=== PATIENT | female | born 1980 | race American Indian/Alaskan Native ===

== ENCOUNTER 2016-10-01 00:20 | Emergency (ER) | payer MEDICAID ==
[2016-10-01] MEDS ORDERED: DELTASONE PO ONE (04:23)
[2016-10-01] MEDS ORDERED: MAGIC MOUTHWASH PO ONE (04:23)
--- NOTE | 2016-10-01 04:39 | Emergency Department Report ---
HPI - General Chief Complaint: Sore Throat Time Seen by Provider: 10/01/16 04:15 - HPI HPI: Patient is a 36-year-old male who presents to ED with her significant other his mother complaining of throat pain 3 days. Patient describes pain as throbbing in nature, 8 out of 10 intensity, nonradiating, localized to his throat. Admits pain with swallowing and eating. . Patient denies fever, coughing, runny nose, nasal congestion. Patient denies nausea/vomiting/abdominal pain/shortness of breath/chest pain/ headache. . ED Past Medical Hx - Past Medical History Previous Medical History?: Yes Hx Asthma: Yes - Surgical History Past Surgical History?: No - Social History Smoking Status: Never Smoker Substance Use Type: None - Medications Home Medications: Home Medications Medication Instructions Recorded Confirmed Last Taken Type Ibuprofen [Motrin] 800 mg PO Q8HR PRN #30 tablet 10/01/16 Unknown Rx ED Review of Systems ROS: Stated complaint: SORE THROAT/PAIN TO SWALLOW Other details as noted in HPI Constitutional: denies: chills, fever Eyes: denies: eye pain, eye discharge, vision change ENT: throat pain. denies: ear pain Respiratory: denies: cough, shortness of breath, wheezing Cardiovascular: denies: chest pain, palpitations Endocrine: no symptoms reported Gastrointestinal: denies: abdominal pain, nausea, diarrhea Genitourinary: denies: urgency, dysuria, discharge Musculoskeletal: denies: back pain, joint swelling, arthralgia Skin: denies: rash, lesions Neurological: denies: headache, weakness, paresthesias Psychiatric: denies: anxiety, depression Hematological/Lymphatic: denies: easy bleeding, easy bruising Physical Exam - Physical Exam Vital Signs: Vital Signs 10/01/16 01:12 Temperature 98.4 F Pulse Rate 86 Respiratory 20 Rate Blood Pressure 144/93 O2 Sat by Pulse 98 Oximetry Physical Exam: GENERAL: Alert and oriented x3, no apparent distress, Normal Gait, atraumatic. HEAD: Head is normocephalic and a-traumatic. EARS: symetrical, atraumatic, non tender, ear canal clear and moderate cerumen, tympanic membrance non inflamed. gross auditory nml bilaterally. NOSE: Nose symetrical, Nontender,Nares appeared normal. MOUTH:Mouth is well hydrated and without lesions. Tonsils nonerythematous or swollen, Uvula midline, Tongue not elevated. Mucous membranes are moist. Posterior pharynx clear, no exudate or lesions. Patent airways. Tenderness to palpation of anterior cervical lymph nodes NECK: Supple. Non edematous, No carotid bruits. No lymphadenopathy or thyromegaly. No C-spine tenderness LUNGS: Symetrical with respiration, No wheezing, no rales or crackles, CTAB. HEART: S1, S2 present, regular rate and rhythm without murmur, no rubs, no gallops. ABDOMEN: No organomegaly was noted,Positive bowel sounds, soft, and non- distended. SKIN: Warm and dry, No lesions, No ulceration or induration present. ED Course Vital Signs 10/01/16 01:12 Temperature 98.4 F Pulse Rate 86 Respiratory 20 Rate Blood Pressure 144/93 O2 Sat by Pulse 98 Oximetry ED Medical Decision Making - Medical Decision Making 36-year-old female presents with pharyngitis ED course: Rapid strep test ordered. Rapid strep test negative culture pending Patient received prednisone and Magic mouthwash and ADD. Discussed findings with patient. Discussed the patient can continue [id number] symptomatic relief for pain as well as Motrin is prescribed Discussed the patient to follow up with primary care physician. Vital signs are normal patient is in no acute or respiratory distress. Patient verbalization understands instructions and will follow Critical care attestation.: If time is entered above; I have spent that time in minutes in the direct care of this critically ill patient, excluding procedure time. ED Disposition Clinical Impression: Pharyngitis Qualifiers: Pharyngitis/tonsillitis etiology: unspecified etiology Qualified Code(s): J02.9 - Acute pharyngitis, unspecified Disposition: DISCHARGED TO HOME OR SELFCARE Is pt being admited?: No Does the pt Need Aspirin: No Condition: Stable Instructions: Pharyngitis (ED) Additional Instructions: Use [id number] relief Such as lozenge in addition to the pain medication prescribed Prescriptions: Ibuprofen [Motrin] 800 mg PO Q8HR PRN #30 tablet PRN Reason: Pain Referrals: ITZEL FOOTE MD [Primary Care Provider] - 3-5 Days MARCELLA ROQUE MD [Referring] - 3-5 Days [facility] [Outside] - 3-5 Days [facility] [Outside] - 3-5 Days Forms: Accompanied Note, Work/School Release Form(ED) Time of Disposition: 05:15
[2016-10-01 06:36] VITALS: BP 132/88
== END 2016-10-01 05:40 | disposition home or self-care (01) ==
LOC: ED 00:20
DX: J02.9 Acute pharyngitis, unspecified (principal); J45.909 Unspecified asthma, uncomplicated; Z88.8 Allergy status to other drugs, medicaments and biological substances
CPT/HCPCS: 87116; 87430; 99282; J7512